=== PATIENT | male | born 1975 | race African-American/Black ===

== ENCOUNTER 2021-05-09 12:03 | Inpatient (IN) | payer MEDICAID, OTHER ==
[~2021-05-09] VITALS: Ht 182.9 cm; Wt 110.2 kg
[~2021-05-09 12:03] MED LIST: VIC GT
[2021-05-09] MEDS ORDERED: MAGNESIUM/ALUMINUM HYDROXIDE/SIMETHICONE 30ML UDC PO STA (12:38)
[2021-05-09] MEDS ORDERED: FAMOTIDINE 20MG/2ML VIAL IV STA (12:38)
[2021-05-09] MEDS ORDERED: SODIUM CHLORIDE 0.9% 1,000 ML IV ONE ×2 (12:45→15:30)
[2021-05-09 13:07] LABS: BASOPHILS % 0.5 % (0.0-2.0); EOSINOPHILS % 0.1 % (0.0-5.0); HEMATOCRIT. 49.4 % (42.0-52.0); LYMPHOCYTES % 11.2 % (20.0-50.0); MEAN CORPUSCULAR HEMOGLOBIN 29.3 pg (28.0-32.0); MEAN CORPUSCULAR VOLUME 90.5 fL (80.0-94.0); MEAN PLATELET VOLUME 9.1 fl (7.4-10.4); MONOCYTES % 9.3 % (2.0-8.0); NEUTROPHILS % 78.9 % (40.0-76.0); PLATELET 265 x1000/uL (130-400); RED BLOOD CELL COUNT 5.46 mill/uL (4.7-6.1); RED CELL DISTRIBUTION WIDTH 13.5 % (11.6-14.6)
[2021-05-09 13:35] LABS: CHLORIDE 90 mEq/L (98-107)
[2021-05-09 15:07] LABS: PROTHROMBIN TIME 10.4 sec (9.6-11.0)
[2021-05-09] MEDS ORDERED: INSULIN REGULAR (DRIP) 100 UNITS in SODIUM CHLORIDE 0.9% 100 ML IV NR (15:30)
[2021-05-09] MEDS ORDERED: SODIUM CHLORIDE 0.9% 1,000 ML IV SCH (15:30)
[2021-05-09 15:43] LABS: CLARITY URINE CLEAR (CLEAR); COLOR URINE YELLOW (YELLOW); KETONES URINE 1+ (NEGATIVE); LEUKOCYTE ESTERASE URINE NEGATIVE (NEGATIVE); NITRITE URINE NEGATIVE (NEGATIVE); OCCULT BLOOD URINE NEGATIVE (NEGATIVE); PROTEIN URINE NEGATIVE (NEGATIVE); SPECIFIC GRAVITY URINE 1.031 (1.005-1.030); UROBILINOGEN URINE 0.2 E.U./dL (0.2-1.0)
[2021-05-09 15:43] LABS: BETA HYDROXYBUTYRATE 8.4 mMol/L (0.0-0.3); PHOSPHORUS 7.2 mg/dL (2.5-4.9)
[2021-05-09 16:06] LABS: *BARBITURATES SCREEN URINE NEGATIVE (NEGATIVE); *BENZODIAZEPINES SCREEN URINE NEGATIVE (NEGATIVE)
[2021-05-09 16:07] LABS: *AMPHETAMINES SCREEN URINE NEGATIVE (NEGATIVE); *COCAINE SCREEN URINE NEGATIVE (NEGATIVE); CANNABINOID URINE SCREEN NEGATIVE (NEGATIVE); METHADONE URINE SCREEN NEGATIVE (NEGATIVE); OPIATES URINE SCREEN NEGATIVE (NEGATIVE); PHENCYCLIDINE URINE SCREEN NEGATIVE (NEGATIVE)
[2021-05-09 16:27] LABS: CHLORIDE 92 mEq/L (98-107)
[2021-05-09] MEDS ORDERED: IPRATROPIUM/ALBUTEROL 0.5-3(2.5)MG/3ML NEB HHN PRN (19:30)
[2021-05-09] MEDS ORDERED: ACETAMINOPHEN 325MG TABLET PO PRN (19:30)
[2021-05-09] MEDS ORDERED: DIPHENHYDRAMINE 50MG/ML VIAL IV PRN (19:30)
[2021-05-09] MEDS ORDERED: ENOXAPARIN 40MG/0.4ML SYR SUBCUT SCH (19:30)
[2021-05-09] MEDS: BLOOD SUGAR DIAGNOSTIC STRIP TEST SCH ×5 (19:30→23:52)
[2021-05-09] MEDS ORDERED: ONDANSETRON HCL 4MG/2ML INJ IV PRN (19:30)
[2021-05-09] MEDS ORDERED: CLONIDINE 0.1MG TABLET PO PRN (19:30)
[2021-05-09] MEDS ORDERED: MORPHINE SULFATE 2 MG/ML CPJ (NOT FOR IM USE) IV PRN (19:30)
[2021-05-09] MEDS ORDERED: LORAZEPAM 2MG/ML CPJ IV PRN (19:30)
[2021-05-09] MEDS ORDERED: HYDROCODONE/ACETAMINOPHEN 5/325MG TABLET PO PRN (19:30)
[2021-05-09] MEDS ORDERED: DEXTROSE 50% WATER 50ML SYRINGE IV PRN ×2 (19:30)
[2021-05-09] MEDS ORDERED: HYDRALAZINE 20MG/ML VIAL IV PRN (19:30)
[2021-05-09] MEDS ORDERED: GUAIFENESIN 200MG/10ML SUGAR FREE UDC PO PRN (19:30)
[2021-05-09] MEDS ORDERED: DOCUSATE SODIUM 100MG CAPSULE PO PRN (19:30)
[2021-05-09] MEDS ORDERED: MAGNESIUM/ALUMINUM HYDROXIDE/SIMETHICONE 30ML UDC PO PRN (19:30)
[2021-05-09] MEDS ORDERED: INSULIN REGULAR (DRIP) 100 UNITS in SODIUM CHLORIDE 0.9% 100 ML IV SCH (19:30)
[2021-05-09 21:09] LABS: CHLORIDE 106 mEq/L (98-107)
[2021-05-09] MEDS: ENOXAPARIN 30MG/0.3ML SYR SUBCUT SCH (21:21)
[2021-05-09] MEDS: SODIUM CHLORIDE 0.9% INJ 3ML FLUSH IVF SCH (22:00)
[2021-05-09] MEDS ORDERED: IOHEXOL-300 100 ML BOTTLE ONE (22:05)
[2021-05-09] MEDS: SODIUM CHLORIDE 0.45% 1,000 ML IV SCH (22:45)
[2021-05-10 00:28] LABS: CREATINE KINASE 338 IU/L (39-308); CREATINE KINASE MB FRACTION < 1.0 ng/mL (0.5-3.6)
[2021-05-10] MEDS: BLOOD SUGAR DIAGNOSTIC STRIP TEST SCH ×10 (00:56→22:53)
[2021-05-10 05:15] LABS: BASOPHILS % 0.4 % (0.0-2.0); EOSINOPHILS % 0.6 % (0.0-5.0); HEMATOCRIT. 47.2 % (42.0-52.0); HEMOGLOBIN. 15.7 g/dL (14.0-18.0); LYMPHOCYTES % 19.3 % (20.0-50.0); MEAN CORPUSCULAR HEMOGLOBIN 28.9 pg (28.0-32.0); MEAN CORPUSCULAR VOLUME 86.7 fL (80.0-94.0); MONOCYTES % 8.5 % (2.0-8.0); NEUTROPHILS % 71.2 % (40.0-76.0); PLATELET 232 x1000/uL (130-400); RED BLOOD CELL COUNT 5.45 mill/uL (4.7-6.1); RED CELL DISTRIBUTION WIDTH 13.2 % (11.6-14.6)
[2021-05-10 05:20] LABS: CHLORIDE 115 mEq/L (98-107)
[2021-05-10] MEDS: SODIUM CHLORIDE 0.45% 1,000 ML IV SCH ×4 (05:25→23:02)
[2021-05-10 05:31] LABS: CREATINE KINASE 338 IU/L (39-308)
[2021-05-10 05:34] LABS: CREATINE KINASE MB FRACTION < 1.0 ng/mL (0.5-3.6)
[2021-05-10] MEDS: SODIUM CHLORIDE 0.9% INJ 3ML FLUSH IVF SCH ×3 (06:10→22:50)
[2021-05-10] MEDS ORDERED: POTASSIUM CHLORIDE 20MEQ TABLET SR PO SCH (07:00)
[2021-05-10] MEDS ORDERED: DEXTROSE 50% WATER 50ML SYRINGE IV PRN (07:00)
[2021-05-10] MEDS: INSULIN LISPRO 100 UNITS/ML SUBCUT SCH ×4 (07:43→23:00)
[2021-05-10] MEDS: ENOXAPARIN 30MG/0.3ML SYR SUBCUT SCH ×3 (09:12→22:50)
[2021-05-10 09:55] VITALS: BP 115/70
[2021-05-10 10:10] VITALS: BP 115/70
[2021-05-10 12:00] VITALS: BP 101/66
[2021-05-10] MEDS ORDERED: INFLUENZA VACCINE 05/PF 0.5 ML SYRINGE IM ONE (15:00)
[2021-05-10] MEDS ORDERED: NALOXONE HCL 0.4MG/ML VIAL IV PRN (15:15)
[2021-05-10] MEDS: INSULIN GLARGINE UD 100 UNITS/ML SYR SUBCUT SCH (15:29)
[2021-05-10 16:00] VITALS: BP 123/77
[2021-05-10 20:00] VITALS: BP 106/64
[2021-05-11] VITALS: BP 132/85
[2021-05-11 04:00] VITALS: BP 113/88
[2021-05-11] MEDS: SODIUM CHLORIDE 0.45% 1,000 ML IV SCH (05:49)
[2021-05-11] MEDS: SODIUM CHLORIDE 0.9% INJ 3ML FLUSH IVF SCH (05:50)
[2021-05-11 06:49] LABS: BASOPHILS % 0.5 % (0.0-2.0); EOSINOPHILS % 1.5 % (0.0-5.0); HEMATOCRIT. 42.2 % (42.0-52.0); HEMOGLOBIN. 14.2 g/dL (14.0-18.0); LYMPHOCYTES % 31.5 % (20.0-50.0); MEAN CORPUSCULAR HEMOGLOBIN 29.8 pg (28.0-32.0); MEAN CORPUSCULAR VOLUME 88.4 fL (80.0-94.0); MEAN PLATELET VOLUME 9.1 fl (7.4-10.4); MONOCYTES % 9.6 % (2.0-8.0); NEUTROPHILS % 56.9 % (40.0-76.0); PLATELET 170 x1000/uL (130-400); RED BLOOD CELL COUNT 4.77 mill/uL (4.7-6.1); RED CELL DISTRIBUTION WIDTH 13.3 % (11.6-14.6)
[2021-05-11] MEDS: BLOOD SUGAR DIAGNOSTIC STRIP TEST SCH ×2 (06:58→12:50)
[2021-05-11 07:05] LABS: CHLORIDE 107 mEq/L (98-107)
[2021-05-11] MEDS: INSULIN LISPRO 100 UNITS/ML SUBCUT SCH ×2 (07:50→12:52)
[2021-05-11 08:00] VITALS: BP 114/76
[2021-05-11] MEDS: ENOXAPARIN 30MG/0.3ML SYR SUBCUT SCH (09:08)
[2021-05-11] MEDS: INSULIN GLARGINE UD 100 UNITS/ML SYR SUBCUT SCH (10:22)
[2021-05-11 12:00] VITALS: BP 118/84
[2021-05-11 13:30] VITALS: BP 118/84
[2021-05-11 16:00] VITALS: BP 118/84
== END 2021-05-11 16:46 | disposition home or self-care (01) | DRG 420 ==
LOC: ER 12:03 → MICUSO 17:31 → SUPCPDRO 19:21 → 6WST 05-10 11:58
PROVIDERS: ADMIT Internal Medicine; ATTEND Internal Medicine
DX: E11.10 Type 2 diabetes mellitus with ketoacidosis without coma (principal); N17.0 Acute kidney failure with tubular necrosis; E87.1 Hypo-osmolality and hyponatremia; E87.5 Hyperkalemia; E86.0 Dehydration; E66.01 Morbid (severe) obesity due to excess calories; E87.6 Hypokalemia; K76.0 Fatty (change of) liver, not elsewhere classified; K59.00 Constipation, unspecified; N32.89 Other specified disorders of bladder; Z79.899 Other long term (current) drug therapy; Z68.32 Body mass index [BMI] 32.0-32.9, adult
CPT/HCPCS: 36415; 74177; 80048; 80053; 80305; 81003; 82010; 82550; 82553; 82962; 83036; 83735; 84100; 84443; 84484; 85025; 90686; 99291; J1650; J1815; J3490; J7030; J7050; Q9967

== ENCOUNTER 2024-10-19 10:04 | Emergency (ER) | payer MEDICAID, OTHER ==
[~2024-10-19] VITALS: Ht 172.7 cm; Wt 138.0 kg
[2024-10-19 10:06] VITALS: BP 178/106; PULSE 69; RESP 19; TEMP 36.7; O2SAT 98
[2024-10-19] MEDS: ACETAMINOPHEN 325MG TABLET PO ONE (12:01)
[2024-10-19] MEDS: KETOROLAC 30MG/ML VIAL IM ONE (12:03)
[2024-10-19] MEDS ORDERED: IBUP-2029 MT (12:23)
[2024-10-19] MEDS ORDERED: TOPUD PO (12:23)
== END 2024-10-19 12:27 | disposition home or self-care (01) ==
LOC: ER 10:04
DX: M70.21 Olecranon bursitis, right elbow (principal); E11.9 Type 2 diabetes mellitus without complications
CPT/HCPCS: 99283; 73070; 96372; J1885; A4565